=== PATIENT | male | born 1965 | race Caucasian/White ===

== ENCOUNTER 2017-06-22 17:33 | Emergency (ER) | payer SELFPAY ==
[~2017-06-22] VITALS: Ht 188 cm; Wt 91.0 kg
[2017-06-22 17:49] VITALS: BP 177/110
== END 2017-06-23 03:09 | disposition left against medical advice (07) ==
LOC: ER 20:01
DX: F41.9 Anxiety disorder, unspecified (principal); Z53.21 Procedure and treatment not carried out due to patient leaving prior to being seen by health care provider